=== PATIENT | female | born 1965 | race Caucasian/White ===

== ENCOUNTER 2023-08-17 17:45 | Emergency (ER) | payer OTHER, SELFPAY ==
[2023-08-17 17:50] VITALS: BP 195/108
--- NOTE | 2023-08-17 19:57 | ED.GENMED ---
History of Present Illness
General
Chief Complaint: Fall
Source: patient
Exam Limitations: none
Time Seen by Provider: 08/17/23 19:13
Nursing documentation reviewed up to this point in time: agreed with
Travel History
Have you had any contact with someone who has COVID-19?: No
Do you have any symptoms of coronavirus? Fever > 100 degrees, chills, cough, shortness of breath, sore throat, loss of taste or smell, muscle aches, or headache?: No
History of Present Illness
History of Present Illness:
58-year-old female presents to the ER for evaluation of left knee pain and injury. She reports 2 days ago she fell on Thursday and injured her left knee. She is not exactly sure if she twisted it and landed on it at the same time. She rested
yesterday but today went to work and has to take the train to [place] and walked a lot in [place] and now complains of pain and can barely bear weight. She took Advil this morning. She has her own orthopedic doctor that she has seen in
the past. She denies any others. She denies fever chills/redness to knee.
Past History
Past History
ED Past Medical History: Hypothyroidism
ED Past Surgical History: None
Social History
Tobacco: Non-smoker
Alcohol: None
Personal:
Living: with family
Employment: Employed
Family History
Family History: Other (Noncontributory)
Review of Systems
Review of Systems
Allergies reviewed?: Yes
All Other Systems: ROS reviewed and negative except as documented in HPI and ROS
Constitutional: Reports no symptoms; Denies fever, fatigue or chills
Musculoskeletal: Reports other (left knee pain )
Skin: Reports no symptoms
Psychiatric: Reports no symptoms
Phy Exam
General Physical Exam
General Presentation: no apparent distress
General age: appears stated age
General Skin: warm and dry
General Habitus: normal
General Mental: alert
Neurological Exam
Neurological Exam: alert and oriented x3
Musculoskeletal Exam
Musculoskeletal Exam: other (lle with strong pulses , no erythema to left knee no obvious swelling able to flex and extend no tenderness or discomfort on medial lateral stress, no laxity. Normal distal sensation normal distal pulses)
Skin Exam
Skin Exam: normal color and warm/dry
Psychiatric Exam
Psychiatric Exam: normal mood/affect
Course
Orders/Labs/Results
Orders:
Orders
08/17/23 18:13
CR Knee - Left 4 Or More View* Urgent
Comment:
Reason For Exam: s/p fall
08/17/23 19:52
Ibuprofen [Motrin] 600 mg PO NOW STA
08/17/23 19:57
Knee Immobilizer Left-Treatmen ONCE
Acetaminophen [Tylenol] 1,000 mg .ROUTE .STK-MED ONE
Acetaminophen [Tylenol] 1,000 mg PO NOW STA
08/17/23 20:01
Vital Signs- Treatment ONCE
Frequency: Once
Vital Signs
Initial and Last Documented VS:
Initial Vital Signs
Temp Pulse Resp BP Pulse Ox
98.4 F 64 18 195/108 99
08/17/23 17:50 08/17/23 17:50 08/17/23 17:50 08/17/23 17:50 08/17/23 17:50
Last Documented Vital Signs
Temp Pulse Resp BP Pulse Ox
98.4 F 62 18 159/86 99
08/17/23 17:50 08/17/23 20:36 08/17/23 20:36 08/17/23 20:36 08/17/23 20:36
MDM/Problems Addressed
Differential Diagnosis Includes:
not limited to: knee sprain/strain, meniscus injury
MDM/Problems Addressed:
Symptoms are consistent with sprain strain of knee x-rays are negative for fracture there is osteoarthritis with small joint effusion will DC with Ortho follow-up. X-rays copied as patient has her own orthopedic doctor who she would like to
follow-up with. Will DC with immobilizer. Discussed Tylenol. and rest/ice
*Critical Care Note
Total Time (30-74mins, 75-104mins- exclusive of procedures): Not Applicable
ED Attending Note
-
Portions of this chart may have been created with voice recognition software.� Occasional wrong word or��sound alike� substitutions may have occurred due to the inherent limitations of voice recognition software.
Discharge Plan
Departure
Patient Disposition: Home (Routine Discharge)
Date of Disposition: 08/17/23
Time of Disposition: 20:00
Patient with high blood pressure during this ER visit?: Yes
Covid-19: Not Applicable
Discharge Problem:
Injury of knee, left
Instructions: Knee Sprain (DC), Knee Pain (DC), BLOOD PRESSURE
Prescriptions:
No Action
Synthroid:
125 mcg PO DAILY
Patient Comments:
'I take it on an empty stomach.'
metronidazole 500 MG tablet
500 mg PO TID 5 Days Qty: 15 0RF
levofloxacin 500 MG tablet
500 mg PO DAILY 5 Days Qty: 5 0RF
Saccharomyces boulardii 250 MG capsule
250 mg PO BID Qty: 30 0RF
ibuprofen 800 MG tablet
800 mg PO QIDPRN PRN (Reason: pain, fever. Take with food.) Qty: 30 0RF
hydrocodone-acetaminophen 1 EACH tablet
1 ea PO QIDPRN PRN (Reason: pain) Qty: 10 0RF
Referrals:
Griselda Slater PA-C [Family Provider] -
Stand Alone Forms: Return to Work
Activity Restrictions/Additional Instructions:
As discussed wear immobilizer for support however remove at night while sleeping. Keep elevated as much as possible in the next several days. ice the affected area for the next several days 20 minutes at a time several times a day. You May
take Tylenol every 4-6 hours for discomfort. Follow-up with orthopedics in the next several days. Please orthopedic physician a call tomorrow to schedule an appointment. Return if any worsening of symptoms.
Interventions
Interventions:
*Risk Screen - Suicide Last Done: 08/17/23 17:50
*General Assessment Last Done: 08/17/23 17:50
*Neglect/Abuse Screening Last Done: 08/17/23 17:50
ED- Fall Risk Assessment Last Done: 08/17/23 20:37
*ED COVID-19 Vaccine History Last Done: 08/17/23 18:04
*Nursing Disposition Last Done: 08/17/23 20:37
ED-Musculoskeletal Assessment Last Done: 08/17/23 18:04
ED- Neurological Assessment Last Done: 08/17/23 18:04
ED-Skin Assessment Last Done: 08/17/23 18:04
Discharge Date and Time
Discharge Date/Time: 08/17/23 20:40
[2023-08-17 20:36] VITALS: BP 159/86
== END 2023-08-17 20:40 | disposition home or self-care (01) ==
LOC: EMR 17:45
PROVIDERS: EMERGENCY PHYSICIAN Student in an Organized Health Care Education/Training Program; FAMILY PHYSICIAN Physician Assistant Medical
DX: S89.92XA Unspecified injury of left lower leg, initial encounter (principal); W19.XXXA Unspecified fall, initial encounter; R03.0 Elevated blood-pressure reading, without diagnosis of hypertension
CPT/HCPCS: 99283; 73564

== ENCOUNTER → 2023-12-14 13:26 | Outpatient (REF) | payer OTHER, SELFPAY | LOC: PAVMRI 13:26 | PROVIDERS: ATTENDING PHYSICIAN Physician Assistant Medical | DX: R51.9 Headache, unspecified (principal); H81.11 Benign paroxysmal vertigo, right ear; H81.09 Meniere's disease, unspecified ear; Z86.69 Personal history of other diseases of the nervous system and sense organs | CPT/HCPCS: 70553; A9575 ==

== ENCOUNTER 2023-12-22 13:52 | Outpatient (RCR) | payer OTHER, SELFPAY | END 2023-12-22 23:59 | disposition home or self-care (01) | LOC: RPT 13:52 | PROVIDERS: ATTENDING PHYSICIAN Otolaryngology Facial Plastic Surgery; FAMILY PHYSICIAN Physician Assistant Medical | DX: H81.11 Benign paroxysmal vertigo, right ear (principal); Z73.6 Limitation of activities due to disability | CPT/HCPCS: 97110; 97112; 97140; 97163 ==

== ENCOUNTER 2024-01-19 13:59 | Outpatient (RCR) | payer OTHER, SELFPAY | END 2024-01-19 23:59 | disposition home or self-care (01) | LOC: RPT 13:59 | PROVIDERS: ATTENDING PHYSICIAN Otolaryngology Facial Plastic Surgery; FAMILY PHYSICIAN Physician Assistant Medical | DX: H81.11 Benign paroxysmal vertigo, right ear (principal); Z73.6 Limitation of activities due to disability; R51.9 Headache, unspecified | CPT/HCPCS: 97110; 97112 ==

== ENCOUNTER 2024-02-09 14:22 | Outpatient (RCR) | payer OTHER, SELFPAY | END 2024-02-09 23:59 | disposition home or self-care (01) | LOC: RPT 14:22 | PROVIDERS: ATTENDING PHYSICIAN Otolaryngology Facial Plastic Surgery; FAMILY PHYSICIAN Physician Assistant Medical | DX: H81.11 Benign paroxysmal vertigo, right ear (principal); Z73.6 Limitation of activities due to disability; R51.9 Headache, unspecified | CPT/HCPCS: 97110; 97112 ==

== ENCOUNTER 2024-06-19 19:00 | Emergency (ER) | payer BC, SELFPAY ==
[2024-06-19 19:04] VITALS: BP 174/104
[2024-06-19 19:39] VITALS: BMI 34.0
[2024-06-19] MEDS: NSS 1000 IV (19:48)
[2024-06-19] MEDS: ZOFRAN 4 MG IV (19:49)
[2024-06-19] MEDS: DILAUDID 0.5 MG IV (19:53)
[2024-06-19 20:00] LABS: % Basophils 0.4 % (0-2); % Eosinophils 1.1 % (0-6); % Immature Granulocytes 0.3 % (0-0.5); % Lymphocytes 10.3 % (20.5-51.1); % Monocytes 6.3 % (1.7-9.3); % Neutrophils 81.6 % (42.2-75.2); Absolute Basophils 0.1 10^3/uL (0-0.2); Absolute Eosinophils 0.1 10^3/uL (0-0.7); Absolute Lymphocytes 1.2 10^3/uL (1.2-3.4); Absolute Monocytes 0.8 10^3/uL (0.1-0.6); Absolute Neutrophils 9.7 10^3/uL (1.4-6.5); Hematocrit 42.1 % (37.0-47.0); Hemoglobin 13.9 g/dL (12.0-16.0); Mean Corpuscular Hgb 29.1 pg (27.0-31.0); Mean Corpuscular Volume 88.1 fL (81.0-99.0); Mean Platelet Volume 10.2 fL (7.4-10.4); Nucleated Red Blood Cells % 0 %; Platelet Count 205 10^3/uL (130-400); Red Blood Cell Count 4.78 10^6/uL (4.20-5.40); Red Cell Dist. Width 12.3 % (11.5-14.5); White Blood Cell Count 11.9 10^3/uL (4.8-10.8)
[2024-06-19] MEDS: OMNIPAQUE 50 ML PO (20:00)
[2024-06-19 20:05] VITALS: BP 154/85
--- NOTE | 2024-06-19 20:11 | EDRN ---
Pt woke last night with LLQ abdominal pain that waxes and wanes, often throbbing. Pt says she laid in a recliner all day, no improvement of pain. Pt did not take anything for pain. Pt had small BM this morning, no diarrhea. Pt felt chilled. No
appetite, has not eaten since yesterday. Pt tried to drink some tea today. Pt denies cp, sob, fever/cough, urinary symptoms, n/v/d/c.
[2024-06-19 20:17] LABS: ALT (SGPT) 25 U/L (0-35); AST (SGOT) 28 U/L (14-36); Albumin 4.5 g/dl (3.5-5.0); Alkaline Phosphatase 68 U/L (38-126); Blood Urea Nitrogen 18 mg/dl (7-17); Calcium 9.2 mg/dl (8.4-10.2); Carbon Dioxide 24 mmol/L (22-30); Chloride 105 mmol/L (98-107); Estimated Creatinine Clearance 89 ml/min; Glucose 105 mg/dl (70-99); Lipase 208 U/L (23-300); Potassium 3.9 mmol/L (3.5-5.1); Sodium 140 mmol/L (135-145); Total Bilirubin 0.6 mg/dl (0.2-1.3); Total Protein 7.1 g/dl (6.3-8.2); eGFR > 60.00
--- NOTE | 2024-06-19 21:31 | EDRN ---
Pt says her pain has mellowed and she does not feel as anxious. Pt almost finished drinking second cup for CT.
[2024-06-19 22:00] VITALS: BP 169/85
[2024-06-19 22:39] LABS: Urine Albumin Negative (Neg - Trace); Urine Bilirubin Negative (Negative); Urine Character Clear (Clear); Urine Color Yellow; Urine Glucose Negative (Negative); Urine Ketone Negative (Negative); Urine Leukocyte Negative (Negative); Urine Nitrite Negative (Negative); Urine Occult Blood Negative (Negative); Urine Specific Gravity 1.005 (<1.030); Urine Urobilinogen Negative (Neg - 1+); Urine pH 6.5 (5.0-9.0)
--- NOTE | 2024-06-19 23:10 | ED.GENMED ---
History of Present Illness
General
Chief Complaint: Abdominal Pain
Source: patient
Exam Limitations: none
Time Seen by Provider: 06/19/24 19:19
Nursing documentation reviewed up to this point in time: agreed with
History of Present Illness
History of Present Illness:
Patient to ED with complaint of lower abd. pain. Symptoms started last PM and continue to worsen. Denies fever/chills, n/v/d. Brought to ED by daughter for eval.
Past History
Past History
ED Past Medical History: Hypothyroidism
ED Past Surgical History: None
Social History
Tobacco: Non-smoker
Alcohol: None
Personal:
Living: with family
Employment: Employed
Family History
Family History: Other (Noncontributory)
Review of Systems
Review of Systems
Allergies reviewed?: Yes
All Other Systems: ROS reviewed and negative except as documented in HPI and ROS
Constitutional: Reports no symptoms
EENT: Reports no symptoms
Respiratory: Reports no symptoms
Cardiac: Reports no symptoms
ABD/GI: Reports abdominal pain
: Reports no symptoms
Musculoskeletal: Reports no symptoms
Skin: Reports no symptoms
Neurological: Reports no symptoms
Psychiatric: Reports no symptoms
Phy Exam
General Physical Exam
General Presentation: well appearing and mild distress
General age: appears stated age
General Skin: warm and dry
General Habitus: normal
General Mental: alert
Cardiovascular Exam
Cardiovascular Exam: regular rate/rhythm and no edema
Gastrointestinal Exam
Gastrointestinal Exam: normal bowel sounds, soft, no organomegaly and non distended
Palpation: left upper quadrant: Mild tenderness, left lower quadrant: Moderate tenderness, right upper quadrant: No tenderness and right lower quadrant: No tenderness
Musculoskeletal Exam
Musculoskeletal Exam: full ROM and neuro vasc intact
Skin Exam
Skin Exam: normal color, warm/dry and no rash
Psychiatric Exam
Psychiatric Exam: normal mood/affect
Course
Orders/Labs/Results
Orders:
Orders
06/19/24 19:32
HYDROmorphone [Dilaudid] 0.5 mg IV NOW STA
Ondansetron Injectable [Zofran] 4 mg IV NOW STA
06/19/24 19:33
CT Abd/pel W Iv And Oral Contr Urgent
Comment:
Reason For Exam: LLQ pain
0.9% Sodium Chloride 1000 ml [Nss] 1,000 ml IV BOLUS
Iohexol [Omnipaque] See Protocol PO NOW STA
06/19/24 19:48
Complete Blood Count/With Diff Urgent
Comprehensive Metabolic Panel Urgent
Lipase Urgent
06/19/24 22:25
Urinalysis Reflex To Culture Urgent
Date Specimen was Collected: 06/19/24
Time Specimen was Collected: 22:07
06/19/24 23:14
Amoxicillin 875 mg/Clav 125 mg [Augmentin 875 mg/125 mg] 1 tablet PO NOW STA
Abnormal Lab Results
06/19/24
19:48
WBC 11.9 H 10^3/uL
(4.8-10.8)
Absolute Neuts (auto) 9.7 H 10^3/uL
(1.4-6.5)
Absolute Monos (auto) 0.8 H 10^3/uL
(0.1-0.6)
Neutrophils % 81.6 H %
(42.2-75.2)
Lymphocytes % 10.3 L %
(20.5-51.1)
BUN 18 H mg/dl
(7-17)
Glucose 105 H mg/dl
(70-99)
06/19/24 19:48
06/19/24 19:48
Vital Signs
Initial and Last Documented VS:
Initial Vital Signs
Temp Pulse Resp BP Pulse Ox
98.1 F 75 18 174/104 99
06/19/24 19:04 06/19/24 19:04 06/19/24 19:04 06/19/24 19:04 06/19/24 19:04
Last Documented Vital Signs
Temp Pulse Resp BP Pulse Ox
98.1 F 73 14 169/85 99
06/19/24 19:04 06/19/24 22:00 06/19/24 22:00 06/19/24 22:00 06/19/24 22:00
ED Attending Note
-
Portions of this chart may have been created with voice recognition software.� Occasional wrong word or��sound alike� substitutions may have occurred due to the inherent limitations of voice recognition software.
Discharge Plan
Departure
Patient Disposition: Home (Routine Discharge)
Date of Disposition: 06/19/24
Time of Disposition: 23:15
Patient with high blood pressure during this ER visit?: No
Condition: Good
Covid-19: Not Applicable
Discharge Problem:
Diverticulitis
Instructions: Clear Liquid Diet, Diverticulitis (DC)
Prescriptions:
New
amoxicillin-pot clavulanate 875-125 mg tablet
1 tab PO BID Qty: 20 0RF
No Action
levothyroxine [Synthroid] 112 mcg Tablet
112 mcg PO DAILY
valsartan 160 mg Tablet
160 mg PO DAILY
Referrals:
Griselda Slater PA-C [Family Provider] -
Diane Fernandez MD [Active] - Call in 1-3 days for appt
Activity Restrictions/Additional Instructions:
Return to the emergency department for any changes in/worsening of your symptoms.
Interventions
Interventions:
*Risk Screen - Suicide Last Done: 06/19/24 19:04
*General Assessment Last Done: 06/19/24 19:04
*Neglect/Abuse Screening Last Done: 06/19/24 19:04
ED- Fall Risk Assessment Last Done: 06/19/24 20:09
*ED COVID-19 Vaccine History Last Done: 06/19/24 19:40
MR-Zywmwl-Rnczkoidlw Assessment Last Done: 06/19/24 20:09
Discharge Date and Time
Print Language: YI
[2024-06-19] MEDS: AUGMENTIN 875 MG/125 MG 1 TABLET PO (23:24)
[2024-06-19 23:27] VITALS: BP 147/77
== END 2024-06-19 23:40 | disposition home or self-care (01) ==
LOC: EMR 19:00
PROVIDERS: Nurse Practitioner; EMERGENCY PHYSICIAN Emergency Medicine; FAMILY PHYSICIAN Physician Assistant Medical
DX: K57.32 Diverticulitis of large intestine without perforation or abscess without bleeding (principal); E03.9 Hypothyroidism, unspecified
CPT/HCPCS: 96374; 96375; 96361; 99285; 74177; 80053; 81003; 83690; 85025; Q9967

== ENCOUNTER → 2024-07-11 08:27 | Outpatient (REF) | payer BC, SELFPAY | LOC: HWWDC 08:27 | PROVIDERS: ATTENDING PHYSICIAN Obstetrics & Gynecology Gynecology; FAMILY PHYSICIAN Physician Assistant Medical | DX: Z12.31 Encounter for screening mammogram for malignant neoplasm of breast (principal) | CPT/HCPCS: 77063; 77067 ==

== ENCOUNTER → 2025-02-23 13:13 | Outpatient (REF) | payer BC, SELFPAY | LOC: HWRAD 13:13 | PROVIDERS: ATTENDING PHYSICIAN Obstetrics & Gynecology Gynecology; FAMILY PHYSICIAN Physician Assistant Medical | DX: N83.201 Unspecified ovarian cyst, right side (principal) | CPT/HCPCS: 76830; 76856 ==

== ENCOUNTER → 2025-07-13 09:12 | Outpatient (REF) | payer BC, SELFPAY | LOC: HWWDC 09:12 | PROVIDERS: ATTENDING PHYSICIAN Obstetrics & Gynecology Gynecology; FAMILY PHYSICIAN Physician Assistant Medical | DX: Z12.31 Encounter for screening mammogram for malignant neoplasm of breast (principal) | CPT/HCPCS: 77063; 77067 ==